=== PATIENT | female | born 1980 | race Caucasian/White ===

== ENCOUNTER 2016-09-21 22:26 | Emergency (ER) | payer BC ==
[~2016-09-21] VITALS: Ht 167.6 cm; Wt 78.5 kg
[2016-09-21 22:30] VITALS: Ht 167.6 cm; Wt 78.5 kg
--- NOTE | 2016-09-21 23:09 | ERA ---
ER Documentation Chief Complaint Date/Time DATE: 09/21/16 TIME: 23:09 Chief Complaint left chest pain radaiting to back since last night, hx- LVH HPI The patient is a 35-year-old female, presenting to the ER because of epigastric abdominal pain radiating to the sternal area and to the back for 1 day. She has similar symptoms about 6 months ago where she saw a winder contort operator. She had a Janice scan test about a month ago that show left ventricular hypertrophy. Her winder contort operator put her on Cardizem and losartan. She is worried that she may not live a long life, she is very emotional, crying during the interview. She denies any fever, chills, neck pain, chest pain with exertion or vomiting or palpitation. He denies nausea, vomiting, dysuria, diarrhea. She does not smoke , drink Past medical history: Hypertension Past surgical history: Hemorrhoidectomy ROS All systems reviewed and are negative except as per history of present illness. Medications Home Meds Active Scripts Sulfamethoxazole/Trimethoprim* (Bactrim Ds* Tablet) 1 Each Tablet, 1 TAB PO BID , #14 TAB Prov:EZEKIEL ANTONIO MD 09/22/16 Reported Medications Alprazolam* (Xanax*) 0.25 Mg Tablet, PO Q8H Y for ANXIETY, TAB 09/22/16 Aspirin* (Aspirin* EC) 81 Mg Tablet.dr, 81 MG PO DAILY, TAB 09/22/16 [place]-3 Fatty Acids (Fish Oil) 300 Mg Capsule, 300 MG PO, CAP 09/22/16 Clonidine Hcl* (Clonidine Hcl*) 0.1 Mg Tab, 0.1 MG PO Q6, TAB 09/22/16 Losartan Potassium* (Losartan Potassium*) 50 Mg Tablet, 50 MG PO DAILY, TAB 09/22/16 Diltiazem Hcl* (Cartia XT*) 120 Mg Cap.sr.24h, 120 MG PO DAILY, #30 CAP 09/22/16 Allergies Allergies: Coded Allergies: No Known Allergy (Unverified , 09/21/16) Physical Exam Vitals Vital Signs Date Time Temp Pulse Resp B/P Pulse Ox O2 Delivery O2 Flow Rate FiO2 09/21/16 23:34 Nasal Cannula 3 09/21/16 22:30 97.2 74 20 136/78 99 Physical Exam Const: No acute distress. Head: Atraumatic. Eyes: Normal Conjunctiva. ENT: Normal External Ears, Nose and Mouth. Neck: Full range of motion. No meningismus. Resp: Clear to auscultation bilaterally. Cardio: Regular rate and rhythm. Abd: Soft, non distended, normal bowel sounds, non tender. Skin: No petechiae or rashes. Back: No midline or flank tenderness. Ext: No cyanosis, or edema. Neur: Awake and alert. No focal deficit Psych: Normal Mood and Affect. Result Diagram: 09/21/16 2309 09/21/16 230 Results 24 hrs Laboratory Tests Test 09/21/16 23:00 09/21/16 23:09 09/22/16 01:55 Urine Color LT. YELLOW Urine Clarity SLIGHTLY CLOUDY Urine pH 6.5 Urine Specific [place] <=1.005 Urine Ketones NEGATIVE Urine Nitrite NEGATIVE Urine Bilirubin NEGATIVE Urine Urobilinogen 0.2 E.U./dL Urine Leukocyte Esterase 1+ Urine Microscopic RBC >200/HPF Urine Microscopic WBC 2-5/HPF Urine Squamous Epithelial Cells FEW Urine Bacteria MODERATE Urine Hemoglobin 3+ Urine Glucose NEGATIVE% Urine Total Protein 1+ White Blood Count 8.610^3/ul Red Blood Count 4.8710^6/ul Hemoglobin 12.8g/dl Hematocrit 39.1% Mean Corpuscular Volume 80.3fl Mean Corpuscular Hemoglobin 26.3pg Mean Corpuscular Hemoglobin Concent 32.7g/dl Red Cell Distribution Width 14.3% Platelet Count 91822^3/UL Mean Platelet Volume 12.9fl Neutrophils % 51.3% Lymphocytes % 42.2% Monocytes % 5.0% Eosinophils % 1.2% Basophils % 0.1% Nucleated Red Blood Cells % 0.0/100WBC Neutrophils # 4.410^3/ul Lymphocytes # 3.610^3/ul Monocytes # 0.410^3/ul Eosinophils # 0.110^3/ul Basophils # 0.010^3/ul Nucleated Red Blood Cells # 0.010^3/ul Prothrombin Time 13.6Sec Prothrombin Time Ratio 1.1 INR International Normalized Ratio 1.04 Activated Partial Thromboplast Time 26.2Sec Sodium Level 140mmol/L Potassium Level 3.8mmol/L Chloride Level 106mmol/L Carbon Dioxide Level 21mmol/L Anion Gap 17 Blood Urea Nitrogen 7mg/dl Creatinine 0.62mg/dl Glucose Level 132mg/dl Calcium Level 9.1mg/dl Total Bilirubin 0.2mg/dl Direct Bilirubin 0.00mg/dl Indirect Bilirubin 0.2mg/dl Aspartate Amino Transf (AST/SGOT) 19IU/L Alanine Aminotransferase (ALT/SGPT) 33IU/L Alkaline Phosphatase 52IU/L Troponin I < 0.012ng/ml < 0.012ng/ml Total Protein 7.4g/dl Albumin 4.6g/dl Globulin 2.80g/dl Albumin/Globulin Ratio 1.64 Lipase 87U/L Current Medications Medications (Trade) Dose Ordered Sig/Martha Route PRN Reason Start Time Stop Time Status Last Admin Dose Admin Lorazepam (Ativan) 0.5 mg ONCE ONCE PO 09/21/16 23:30 09/21/16 23:31 DC 09/21/16 23:28 Ketorolac Tromethamine (Toradol) 30 mg ONCE STAT IV 09/22/16 01:29 09/22/16 01:30 DC 09/22/16 01:41 Procedures/[place] [id number] Radiology Main Line: [phone] DIAGNOSTIC IMAGING REPORT Patient: CECI VALENTINO : 1980 Age: 35 Sex: F MR #: [id number] DOS: 09/21/16 2320 Ordering MD: EZEKIEL ANTONIO MD Location: E/R Room/Bed: PROCEDURE: XR Chest. CLINICAL INDICATION: Chest pain. TECHNIQUE: Single frontal view of the chest. COMPARISON: None. FINDINGS: The cardiomediastinal silhouette is within normal limits. The lungs are clear. No signs of pleural fluid or pneumothorax are seen. The osseous structures and soft tissues are unremarkable. IMPRESSION: No evidence for active cardiopulmonary disease. RPTAT: [facility] Physician Norma Date Time Electronically viewed and signed by Physician Norma on 09/22/2016 00:31 RS/ CC: EZEKIEL ANTONIO MD EKG: At 2311 hrs. read by emergency physician Rate/Rhythm: Normal Sinus Rhythm 78 beats/min QRS, ST, T-waves: No ST elevation, no T inversion, sinus arrhythmia Impression: Abnormal EKG EKG: Read by emergency physician Rate/Rhythm: Normal Sinus Rhythm 60 beats/min QRS, ST, T-waves: No ST elevation, no T inversion Impression: EKG MEDICAL MAKING DECISION: The patient is a 35-year-old female, presenting with acute chest pain most likely due to acute stress and acute anxiety, acute cystitis. She was treated with Ativan 0.5 mg p.o. for acute anxiety and Toradol 30 mg IV for chest wall pain with good response The differential diagnoses considered include but are not limited to acute coronary syndrome, acute myocardial infarction, pericarditis, pulmonary embolism , aortic dissection, pneumonia, pleural effusion, pneumothorax, GERD, chest wall pain. Departure Diagnosis: Primary Impression: Chest pain Additional Impression: UTI (urinary tract infection) Condition: Good Comments She was discharged with Bactrim DS and Motrin The patient presents with chest pain and I considered pulmonary embolism, aortic dissection, pneumothorax among other diagnoses. Evaluation for acute coronary syndrome was performed. The HEART score (www.mdcalc.com) was utilized for risk stratification and found to be <= 3. Repeat EKG and troponin @ 3 hours were unchanged. Based on this evaluation the patients risk of major adverse cardiac events is <1%. Shared decision making occurred with patient and the decision has been made to discharge the patient for outpatient evaluation and functional study within 72 hours. EZEKIEL ANTONIO MD Sep 21, 2016 23:09
[2016-09-21] MEDS ORDERED: LORAZEPAM 0.5 MG TAB PO ONE (23:30)
[2016-09-21 23:33] LABS: ADD SCAN DIFF NO
[2016-09-21 23:34] LABS: BASOPHILS % 0.1 % (0.0-2.0); EOSINOPHILS # 0.1 10^3/ul (0.0-0.5); EOSINOPHILS % 1.2 % (0.0-7.0); HEMATOCRIT 39.1 % (37.0-47.0); HEMOGLOBIN 12.8 g/dl (12.0-16.0); LYMPHOCYTES # 3.6 10^3/ul (0.8-2.9); LYMPHOCYTES % 42.2 % (15.0-51.0); MEAN CORPUSCULAR HEMOGLOBIN 26.3 pg (29.0-33.0); MEAN CORPUSCULAR HGB CONC 32.7 g/dl (32.0-37.0); MEAN CORPUSCULAR VOLUME 80.3 fl (82.0-101.0); MEAN PLATELET VOLUME 12.9 fl (7.4-10.4); MONOCYTE # 0.4 10^3/ul (0.3-0.9); NEUTROPHIL # 4.4 10^3/ul (1.6-7.5); NEUTROPHILS % 51.3 % (39.0-77.0); PLATELET COUNT 326 10^3/UL (140-415); RED BLOOD COUNT 4.87 10^6/ul (4.20-5.40); RED CELL DISTRIBUTION WIDTH 14.3 % (11.5-14.5); WHITE BLOOD COUNT 8.6 10^3/ul (4.8-10.8)
[2016-09-21 23:44] LABS: ALBUMIN 4.6 g/dl (3.3-4.9); ALBUMIN/GLOBULIN RATIO 1.64; BILIRUBIN,INDIRECT 0.2 mg/dl (0-1.1); BILIRUBIN,TOTAL 0.2 mg/dl (0.2-1.3); CALCIUM 9.1 mg/dl (8.4-10.2); CREATININE 0.62 mg/dl (0.44-1.00); POTASSIUM 3.8 mmol/L (3.5-5.1); TOTAL PROTEIN 7.4 g/dl (6.1-8.1)
[2016-09-21 23:50] LABS: INR 1.04; PROTIME 13.6 Sec (12.2-14.2); PT RATIO 1.1
[2016-09-21 23:51] LABS: PARTIAL THROMBOPLASTIN TIME 26.2 Sec (25.0-35.0)
[2016-09-22 00:17] LABS: ADD UMIC YES; URINE BILIRUBIN (Dip) NEGATIVE (NEGATIVE); URINE BLOOD (Dip) 3+ (NEGATIVE); URINE COLOR LT. YELLOW (YELLOW); URINE GLUCOSE (Dip) NEGATIVE (NEGATIVE); URINE KETONES (Dip) NEGATIVE (NEGATIVE); URINE LEUKOCYTE ESTERASE (Dip) 1+ (NEGATIVE); URINE NITRITE (Dip) NEGATIVE (NEGATIVE); URINE TOTAL PROTEIN (Dip) 1+ (NEGATIVE); URINE UROBILINOGEN (Dip) 0.2 E.U./dL (0.1-1.0)
--- NOTE | 2016-09-22 00:31 | RADRPT ---
PROCEDURE: XR Chest. CLINICAL INDICATION: Chest pain. TECHNIQUE: Single frontal view of the chest. COMPARISON: None. FINDINGS: The cardiomediastinal silhouette is within normal limits. The lungs are clear. No signs of pleural f luid or pneumothorax are seen. The osseous structures and soft tissues are unremarkable. IMPRESSION: No evidence for active cardiopulmonary disease. RPTAT: [facility] Physician Norma Date Time Electronically viewed and signed by Physician Norma on 09/22/2016 00:31 RS/
[2016-09-22 00:33] LABS: BACTERIA,URINE MODERATE; SQUAMOUS EPITHELIAL CELL,UR FEW; URINE RBCS >200 /HPF (0)
[2016-09-22] MEDS ORDERED: KETOROLAC 30 MG INJ IV STA (01:29)
[2016-09-22] MEDS ORDERED: LOSA50TA6 PO (02:00)
[2016-09-22] MEDS ORDERED: CLON-379 PO (02:00)
[2016-09-22] MEDS ORDERED: DILT120C62 PO (02:00)
[2016-09-22] MEDS ORDERED: ASPI-664 PO (02:02)
[2016-09-22] MEDS ORDERED: OMEG300C3 PO (02:02)
[2016-09-22] MEDS ORDERED: ALPR0.25 PO (02:02)
[2016-09-22] MEDS ORDERED: SULF1TAB31 PO (03:33)
[2016-09-22 04:00] VITALS: BP 120/75; PULSE 65; RESP 16; TEMP 98.1
== END 2016-09-22 04:02 | disposition home or self-care (01) ==
LOC: E/R 22:26
DX: R07.9 Chest pain, unspecified (principal); N39.0 Urinary tract infection, site not specified; Z79.82 Long term (current) use of aspirin
CPT/HCPCS: 36415; 71010; 80053; 81001; 83690; 84484; 85025; 85610; 85730; 96374; J1885; Z7502; Z7610

== ENCOUNTER 2017-01-10 03:05 | Inpatient (IN) | payer BC ==
[~2017-01-10] VITALS: Ht 162.6 cm; Wt 71.0 kg
[2017-01-10] VITALS (9 sets, daily range): BP systolic 95–102; BP diastolic 54–64; PULSE 63–79; RESP 19–20; TEMP 97.8; Ht 162.6 cm; Wt 71.0 kg
[~2017-01-10 03:05] MED LIST: ALPR0.25 PO; ASPI-664 PO; CLON-379 PO; DILT120C62 PO; LOSA50TA6 PO; OMEG300C3 PO; SULF1TAB31 PO
[2017-01-10] MEDS ORDERED: KETOROLAC 15 MG INJ IV STA (03:09)
[2017-01-10] MEDS ORDERED: ONDANSETRON 4 MG INJ IV STA (03:09)
[2017-01-10] MEDS ORDERED: LIDOCAINE/MYLANTA 40 ML BTL PO STA (03:09)
[2017-01-10] MEDS ORDERED: SOD CHLORIDE 0.9% 1,000 ML IV STA (03:09)
[2017-01-10] MEDS ORDERED: BELLADONNA/PHENOBARBITAL TAB PO STA (03:09)
[2017-01-10] MEDS ORDERED: ALPRAZOLAM 1 MG TAB PO ONE (03:30)
[2017-01-10 03:34] LABS: BASOPHILS % 0.5 % (0.0-2.0); EOSINOPHILS # 0.1 10^3/ul (0.0-0.5); EOSINOPHILS % 1.7 % (0.0-7.0); HEMATOCRIT 34.4 % (37.0-47.0); HEMOGLOBIN 11.3 g/dl (12.0-16.0); LYMPHOCYTES # 3.8 10^3/ul (0.8-2.9); LYMPHOCYTES % 46.7 % (15.0-51.0); MEAN CORPUSCULAR HEMOGLOBIN 25.6 pg (29.0-33.0); MEAN CORPUSCULAR HGB CONC 32.8 g/dl (32.0-37.0); MEAN PLATELET VOLUME 11.8 fl (7.4-10.4); MONOCYTE # 0.5 10^3/ul (0.3-0.9); MONOCYTES % 5.8 % (0.0-11.0); NEUTROPHIL # 3.7 10^3/ul (1.6-7.5); NEUTROPHILS % 45.1 % (39.0-77.0); PLATELET COUNT 286 10^3/UL (140-415); RED BLOOD COUNT 4.41 10^6/ul (4.20-5.40); RED CELL DISTRIBUTION WIDTH 15.5 % (11.5-14.5); WHITE BLOOD COUNT 8.1 10^3/ul (4.8-10.8)
--- NOTE | 2017-01-10 03:37 | RADRPT ---
PROCEDURE: CHEST - 1 VIEW CLINICAL INDICATION: 36-year-old female with chest/abdominal pain. TECHNIQUE: A single frontal AP upright portable view of the chest was performed. The images were reviewed on a PACS workstation. COMPARISON: None. FINDINGS: The cardiomediastinal silhouette has a normal appearance. There is no evidence for an infiltrate. There is no evidence for congestive heart failure. There is no evidence for pneumothorax. The osseou s structures are intact. IMPRESSION: No evidence for active cardiopulmonary disease. .Quinton Chandler MD, MD Date Time Electronically viewed and signed by .Quinton Chandler MD, on 01/10/2017 03:37 .M/
[2017-01-10 03:53] LABS: ALANINE AMINOTRANSFERASE 33 IU/L (13-69); ALBUMIN/GLOBULIN RATIO 1.29; ALKALINE PHOSPHATASE 61 IU/L (42-121); ANION GAP 13 (8-16); ASPARTATE AMINO TRANSFERASE 15 IU/L (15-46); BILIRUBIN,INDIRECT 0.3 mg/dl (0-1.1); BILIRUBIN,TOTAL 0.3 mg/dl (0.2-1.3); BLOOD UREA NITROGEN 6 mg/dl (7-20); CALCIUM 8.7 mg/dl (8.4-10.2); CARBON DIOXIDE 20 mmol/L (21-31); CHLORIDE 110 mmol/L (97-110); CREATININE 0.57 mg/dl (0.44-1.00); GLUCOSE 109 mg/dl (70-220); POTASSIUM 3.5 mmol/L (3.5-5.1); SODIUM 139 mmol/L (135-144); TOTAL PROTEIN 7.1 g/dl (6.1-8.1)
[2017-01-10 04:12] LABS: TROPONIN-I < 0.012 ng/ml (0.00-0.12)
--- NOTE | 2017-01-10 04:25 | ERA ---
ER Documentation Chief Complaint Date/Time DATE: 01/10/17 TIME: 04:17 Chief Complaint bib ra cp x30min. +nitrox2, 162 aspirin given. hx LVH HPI 36-year-old woman with a history of left ventricular hypertrophy and early coronary artery disease stents with pressure like substernal chest pain lasting 20-30 minutes. She states the discomfort is worse than her normal chest pains which are usually was leave the with 1 dose of nitroglycerin. She states she used all 3 doses of nitroglycerin this evening without relief of her chest pain , and also states her pulse went up and her blood pressure was elevated. She states she is magnesium citrate yesterday to treat constipation but had multiple episodes of diarrhea last night and today. She denies blood per rectum or melena. She denies history of AL, no shortness of breath, no fevers or chills, no vomiting, no abdominal pain, no headache or blurry vision, no loss of consciousness. Patient was transported here by EMS without further complications. ROS All systems reviewed and are negative except as per history of present illness. Medications Home Meds Active Scripts Sulfamethoxazole/Trimethoprim* (Bactrim Ds* Tablet) 1 Each Tablet, 1 TAB PO BID , #14 TAB Prov:EZEKIEL ANTONIO MD 09/22/16 Reported Medications Alprazolam* (Xanax*) 0.25 Mg Tablet, PO Q8H Y for ANXIETY, TAB 09/22/16 Aspirin* (Aspirin* EC) 81 Mg Tablet.dr, 81 MG PO DAILY, TAB 09/22/16 [place]-3 Fatty Acids (Fish Oil) 300 Mg Capsule, 300 MG PO, CAP 09/22/16 Clonidine Hcl* (Clonidine Hcl*) 0.1 Mg Tab, 0.1 MG PO Q6, TAB 09/22/16 Losartan Potassium* (Losartan Potassium*) 50 Mg Tablet, 50 MG PO DAILY, TAB 09/22/16 Diltiazem Hcl* (Cartia XT*) 120 Mg Cap.sr.24h, 120 MG PO DAILY, #30 CAP 09/22/16 Allergies Allergies: Coded Allergies: No Known Allergy (Unverified , 09/21/16) PMhx/Soc Hypertension, left ventricular hypertrophy History of Surgery: Yes (Hemorrhoidectomy,R Eyelid Surg,Rhinoplasty) Anesthesia Reaction: No Hx Neurological Disorder: No Hx Respiratory Disorders: No Hx Cardiac Disorders: Yes (HTN) Hx Psychiatric Problems: Yes (Anxiety) Hx Miscellaneous Medical Probl: No Hx Alcohol Use: No Hx Substance Use: No Hx Tobacco Use: Yes Smoking Status: Former smoker FmHx History of early CAD in father with his first CABG at 50-55 years of age Family History: No diabetes Physical Exam Vitals Vital Signs Date Time Temp Pulse Resp B/P Pulse Ox O2 Delivery O2 Flow Rate FiO2 01/10/17 03:14 98.7 91 20 109/80 99 Physical Exam GENERAL: Well-developed, well-nourished, anxious, tearful, afebrile HEENT: Moist mucous membranes, pink conjunctiva, no cervical spine tenderness or step-off deformities, no goiter, no jaundice or icterus, extraocular movements intact without pain. No submandibular induration, and no pharyngeal erythema NEURO: Alert and oriented 3, cranial nerves II through XII intact bilaterally, pupils equal round reactive to light, no focal deficits or facial asymmetry, sensation intact distally Strength 5/5 in upper and lower extremities bilaterally CARDIAC: Regular rate and rhythm, no murmurs rubs or gallops LUNGS: Clear bilaterally no wheezing crackles or stridor ABDOMEN: Soft nontender, no guarding, no rigidity, no rebound, no psoas sign no obturator sign. Normoactive bowel sounds SKIN: Warm and dry to touch, no abrasions, contusions, or hematomas, no lacerations, no ecchymosis, no target lesions, and without ulcers EXTREMITIES: No clubbing cyanosis or edema, calves are bilaterally symmetrical, no Homans sign, no popliteal cord sign. Distal pulses equal and bilateral PSYCH: Anxious Result Diagram: 01/10/17 0322 01/10/17 0322 Results 24 hrs Laboratory Tests Test 01/10/17 03:22 White Blood Count 8.110^3/ul Red Blood Count 4.4110^6/ul Hemoglobin 11.3g/dl Hematocrit 34.4% Mean Corpuscular Volume 78.0fl Mean Corpuscular Hemoglobin 25.6pg Mean Corpuscular Hemoglobin Concent 32.8g/dl Red Cell Distribution Width 15.5% Platelet Count 20481^3/UL Mean Platelet Volume 11.8fl Neutrophils % 45.1% Lymphocytes % 46.7% Monocytes % 5.8% Eosinophils % 1.7% Basophils % 0.5% Nucleated Red Blood Cells % 0.0/100WBC Neutrophils # 3.710^3/ul Lymphocytes # 3.810^3/ul Monocytes # 0.510^3/ul Eosinophils # 0.110^3/ul Basophils # 0.010^3/ul Nucleated Red Blood Cells # 0.010^3/ul Sodium Level 139mmol/L Potassium Level 3.5mmol/L Chloride Level 110mmol/L Carbon Dioxide Level 20mmol/L Anion Gap 13 Blood Urea Nitrogen 6mg/dl Creatinine 0.57mg/dl Glucose Level 109mg/dl Calcium Level 8.7mg/dl Total Bilirubin 0.3mg/dl Direct Bilirubin 0.00mg/dl Indirect Bilirubin 0.3mg/dl Aspartate Amino Transf (AST/SGOT) 15IU/L Alanine Aminotransferase (ALT/SGPT) 33IU/L Alkaline Phosphatase 61IU/L Troponin I < 0.012ng/ml Total Protein 7.1g/dl Albumin 4.0g/dl Globulin 3.10g/dl Albumin/Globulin Ratio 1.29 Lipase 90U/L Current Medications Medications (Trade) Dose Ordered Sig/Martha Route PRN Reason Start Time Stop Time Status Last Admin Dose Admin Sodium Chloride (NS) 1,000 ml @ 1,000 mls/hr Q1H STAT IV 01/10/17 03:09 01/10/17 04:08 DC 01/10/17 03:22 Ondansetron HCl (Zofran Inj) 4 mg ONCE STAT IV 01/10/17 03:09 01/10/17 03:12 DC 01/10/17 03:21 Miscellaneous Medication (Gi Cocktail (2)) 40 ml ONCE STAT PO 01/10/17 03:09 01/10/17 03:12 DC 01/10/17 03:22 Belladonna/ Phenobarbital () 2 tab ONCE STAT PO 01/10/17 03:09 01/10/17 03:12 DC 01/10/17 03:21 Ketorolac Tromethamine (Toradol) 15 mg ONCE STAT IV 01/10/17 03:09 01/10/17 03:12 DC 01/10/17 03:27 Alprazolam (Xanax) 1 mg ONCE ONCE PO 01/10/17 03:30 01/10/17 03:31 DC 01/10/17 03:21 Procedures/MDM The line was established patient was placed on talk show host rhythm strip revealed a sinus rhythm at about 70 bpm with upright P and T waves. Patient was afebrile. EKG performed, read by me: 79 bpm, normal sinus rhythm, normal axis, no acute ST segment changes, narrow QRS complex, with good R-wave progression in precordial leads. One AP view of the chest performed, read by me reveals no acute infiltrates, normal mediastinum, sharp costophrenic and cardiac borders, no air under the diaphragm. Otherwise unremarkable chest x-ray. I administered 1 L normal saline intravenously, Toradol 15 mg IV, Zofran 4 mg IV , GI cocktail 30 cc p.o. and alprazolam 1 mg p.o. Patient used aspirin prior to arrival and EMS also administered aspirin in route. CBC and electrolytes are normal, liver function tests are normal, troponin was negative. Patient has concerning past medical history and a strong family history of early cardiac disease and experienced concerning chest pain today which was not relieved by her usual dose of nitroglycerin. She will be admitted to telemetry setting for continued medical management cardiology consultation. Departure Diagnosis: Primary Impression: Chest pain Qualified Code: R07.9 - Chest pain, unspecified type Additional Impressions: Unstable angina Hypertension Qualified Code: I10 - Essential hypertension Condition: CLAUDIA Kirby MD Jan 10, 2017 04:25
[2017-01-10] MEDS ORDERED: LACT1TAB25 PO (04:51)
[2017-01-10] MEDS ORDERED: NIT4 SL (04:51)
[2017-01-10] MEDS ORDERED: ONDANSETRON 4 MG INJ IV PRN (06:00)
[2017-01-10] MEDS ORDERED: morphine 2 MG INJ IV PRN (06:00)
[2017-01-10] MEDS ORDERED: NITROGLYCERIN (SL) 0.4 MG TAB SL PRN (06:00)
[2017-01-10] MEDS ORDERED: ALBUTEROL/IPRATROPIUM (NEB) 3 ML AMP HHN PRN (06:00)
[2017-01-10] MEDS ORDERED: ACETAMINOPHEN 325 MG TAB PO PRN (06:00)
[2017-01-10] MEDS ORDERED: NACL 0.9% 3 ML SYG IV SCH (06:00)
[2017-01-10] MEDS ORDERED: ALPRAZOLAM 0.25 MG TAB PO PRN (06:00)
[2017-01-10 07:39] LABS: CREATINE KINASE 31 IU/L (23-200)
[2017-01-10 07:51] LABS: CK-MB < 0.22 ng/ml (0.0-2.4)
[2017-01-10 08:04] LABS: TROPONIN-I < 0.012 ng/ml (0.00-0.12)
[2017-01-10] MEDS ORDERED: ASPIRIN 81 MG TAB PO SCH (09:00)
[2017-01-10] MEDS ORDERED: FAMOTIDINE 20 MG TAB PO SCH (09:00)
[2017-01-10] MEDS ORDERED: LOSARTAN 50 MG TAB PO SCH (09:00)
[2017-01-10] MEDS ORDERED: DILTIAZEM (CD) 180 MG CAP PO SCH (09:00)
[2017-01-10] MEDS ORDERED: ENOXAPARIN 40 MG/0.4 ML SYG SC SCH (09:00)
--- NOTE | 2017-01-10 09:53 | HP ---
Date/Time of Note Date/Time of Note DATE: 01/10/17 TIME: 09:45 Assessment/Plan VTE Prophylaxis VTE Prophylaxis Intervention: heparin Lines/Catheters IV [facility]ter [facility]from [facility] [place] [facility] Urinary Cath still in place: No Assessment/Plan Assessment/Plan 1. Chest pain, rule out ACS -Continue telemetry monitoring -Trend troponin -Supplemental oxygen, aspirin, with as needed nitro morphine -Check A1c, fasting lipid and TSH -Follow-up 2D echo results -Cardiology consult as needed 2. History of hypertension: Blood pressure within goal -Continue antihypertensives with adjustment as needed 3. History of anxiety disorder -Continue Xanax as needed HPI/ROS Admit Date/Time Admit Date/Time Jan 10, 2017 at 05:00 Hx of Present Illness This is a 36-year-old female with a history of hypertension, anxiety, probable unstable angina who presented to the emergency department complaining of chest pain. Pain is substernal, pressure-like, with radiation down into the epigastric area. She said for a long time, she has been having chest pain sometimes on a daily basis for which she has been taking sublingual nitroglycerin. She said the nitro sometimes helps and other times he does not. This time she took 3 of them without any relief. She said she was told she has LVH, from her hypertension and seems to be concerned about that. She follows up with his weather observer and actually not long ago had stress test. She said does not fully know the results of but thinks that it was not negative. She never had cardiac cath. Patient also reported history of anxiety for which she has been taking Xanax PMH/Family/Social Social History Smoking Status: Never smoker Exam/Review of Systems Vital Signs Vitals Vital Signs Date Time Temp Pulse Resp B/P Pulse Ox O2 Delivery O2 Flow Rate FiO2 01/10/17 08:10 63 01/10/17 08:09 98.0 20 100/64 97 01/10/17 05:15 Room Air Intake and Output 01/09/17 01/09/17 01/10/17 15:00 23:00 07:00 Intake Total 1000 ml Balance 1000 ml Exam Constitutional: other (No acute distress. Patient was sitting up on the bed and appears anxious especially as I walked into the room.) Head: atraumatic, normocephalic Eyes: EOMI, PERRL Respiratory: clear to auscultation, normal air movement Cardiovascular: nl pulses, regular rate and rhythm Gastrointestinal: non-tender, soft Extremities: normal pulses Labs Result Diagram: 01/10/172 01/10/17 032 Medications Medications Current Medications Ondansetron HCl (Zofran Inj) 4 mg Q6H PRN IV NAUSEA AND/OR VOMITING; Start at 06:00 Aspirin (Aspirin) 81 mg DAILY PO Last administered on 01/10/17 09:28; Admin Dose 81 MG; Start 01/10/17 at 09:00 Nitroglycerin (Nitroglycerin (Sl Tab) 0.4 Mg) 1 tab Q5M PRN SL CHEST PAIN; Start 01/10/17 at 06:00 Acetaminophen (Tylenol Tab) 650 mg Q6H PRN PO PAIN LEVEL 1-3 OR FEVER; Start at 06:00 Morphine Sulfate (morphine) 2 mg Q4H PRN IV PAIN LEVEL 7-10; Start 01/10/17 at 06:00 Famotidine (Pepcid) 20 mg Q12 PO Last administered on 01/10/17 09:28; Admin Dose 20 MG; Start 01/10/17 at 09:00 Enoxaparin Sodium (Lovenox) 40 mg DAILY SC Last administered on 01/10/17 09:29 ; Admin Dose 40 MG; Start 01/10/17 at 09:00 Alprazolam (Xanax) 0.5 mg Q8H PRN PO ANXIETY; Start 01/10/17 at 06:00 Diltiazem HCl (Cardizem Cd) 180 mg DAILY PO ; Start 01/10/17 at 09:00 Losartan Potassium (Cozaar) 50 mg DAILY PO ; Start 01/10/17 at 09:00 SAMMY MILLER MD Jan 10, 2017 09:53
[2017-01-10 13:12] LABS: CREATINE KINASE 37 IU/L (23-200)
[2017-01-10 13:28] LABS: CK-MB < 0.22 ng/ml (0.0-2.4); TROPONIN-I < 0.012 ng/ml (0.00-0.12)
[2017-01-10] MEDS ORDERED: PANT40TA3 PO (14:46)
--- NOTE | 2017-01-10 14:53 | DS ---
Date/Time of Note Date/Time of Note DATE: 01/10/17 TIME: 14:47 Discharge Summary Admission/Discharge Info Admit Date/Time Jan 10, 2017 at 05:00 Discharge Date/Time Discharge Diagnosis 1. Chest pain, consider GI related, protonix follow up with PCP 2. HTN, controlled 3. Anxiety disorder, stable, follow up with PCP Patient Condition: Stable Hospital Course 36 years old female with HTN and anxiety disorder has lower retrosternal and epigastric pain for years that she had stress thallium test 2 years ago and then 4 months ago both were negative. Patient came in with similar chest pain, constant, not relieved by NTG for several hours. It is subsided today. Physical exam with epigastric and lower sternum tenderness. Troponin is negative, ECG unremarkable. Chest pain is considered noncardiac, no further cardiac workup needed at this time. Home Meds Active Scripts Pantoprazole* (Protonix*) 40 Mg Tablet.dr, 40 MG PO DAILY for 30 Days, TAB Prov:OMAR SARMIENTO MD 01/10/17 Reported Medications Lactobacillus Acidophilus (Probiotic Acidophilus) 1 Each Tablet, 1 EACH PO, TAB 01/10/17 Nitroglycerin* (Nitrostat*) 0.4 Mg Tab.subl, 0.4 MG SL Q5MIN Y for CHEST PAIN, BOTTLE 01/10/17 Alprazolam* (Xanax*) 0.25 Mg Tablet, PO Q8H Y for ANXIETY, TAB 09/22/16 [place]-3 Fatty Acids (Fish Oil) 300 Mg Capsule, 300 MG PO, CAP 09/22/16 Losartan Potassium* (Losartan Potassium*) 50 Mg Tablet, 50 MG PO DAILY, TAB 09/22/16 Diltiazem Hcl* (Cartia XT*) 120 Mg Cap.sr.24h, 180 MG PO DAILY, #30 CAP 09/22/16 Discontinued Reported Medications Aspirin* (Aspirin* EC) 81 Mg Tablet.dr, 81 MG PO DAILY, TAB 09/22/16 Clonidine Hcl* (Clonidine Hcl*) 0.1 Mg Tab, 0.1 MG PO Q6, TAB 09/22/16 Discontinued Scripts Sulfamethoxazole/Trimethoprim* (Bactrim Ds* Tablet) 1 Each Tablet, 1 TAB PO BID , #14 TAB Prov:EZEKIEL ANTONIO MD 09/22/16 Follow-up Plan PCP and cardiology in one week Primary Care Provider Not On Staff Doctor Pending Labs Laboratory Tests Test 01/10/17 03:22 01/10/17 06:45 01/10/17 12:32 White Blood Count 8.110^3/ul (4.8-10.8) Red Blood Count 4.4110^6/ul (4.20-5.40) Hemoglobin 11.3g/dl (12.0-16.0) Hematocrit 34.4% (37.0-47.0) Mean Corpuscular Volume 78.0fl (82.0-101.0) Mean Corpuscular Hemoglobin 25.6pg (29.0-33.0) Mean Corpuscular Hemoglobin Concent 32.8g/dl (32.0-37.0) Red Cell Distribution Width 15.5% (11.5-14.5) Platelet Count 85944^3/UL (140-415) Mean Platelet Volume 11.8fl (7.4-10.4) Neutrophils % 45.1% (39.0-77.0) Lymphocytes % 46.7% (15.0-51.0) Monocytes % 5.8% (0.0-11.0) Eosinophils % 1.7% (0.0-7.0) Basophils % 0.5% (0.0-2.0) Nucleated Red Blood Cells % 0.0/100WBC (0.0-0.0) Neutrophils # 3.710^3/ul (1.6-7.5) Lymphocytes # 3.810^3/ul (0.8-2.9) Monocytes # 0.510^3/ul (0.3-0.9) Eosinophils # 0.110^3/ul (0.0-0.5) Basophils # 0.010^3/ul (0.0-0.1) Nucleated Red Blood Cells # 0.010^3/ul (0.0-0.0) Sodium Level 139mmol/L (135-144) Potassium Level 3.5mmol/L (3.5-5.1) Chloride Level 110mmol/L (97-110) Carbon Dioxide Level 20mmol/L (21-31) Anion Gap 13 (8-16) Blood Urea Nitrogen 6mg/dl (7-20) Creatinine 0.57mg/dl (0.44-1.00) Glucose Level 109mg/dl (70-220) Calcium Level 8.7mg/dl (8.4-10.2) Total Bilirubin 0.3mg/dl (0.2-1.3) Direct Bilirubin 0.00mg/dl (0.00-0.20) Indirect Bilirubin 0.3mg/dl (0-1.1) Aspartate Amino Transf (AST/SGOT) 15IU/L (15-46) Alanine Aminotransferase (ALT/SGPT) 33IU/L (13-69) Alkaline Phosphatase 61IU/L (42-121) Troponin I < 0.012ng/ml (0.00-0.12) < 0.012ng/ml (0.00-0.12) < 0.012ng/ml (0.00-0.12) Total Protein 7.1g/dl (6.1-8.1) Albumin 4.0g/dl (3.3-4.9) Globulin 3.10g/dl (1.3-3.2) Albumin/Globulin Ratio 1.29 Lipase 90U/L (23-300) Creatine Kinase 31IU/L (23-200) 37IU/L (23-200) Creatine Kinase Index 0.7 0.6 Creatinine Kinase MB (Mass) < 0.22ng/ml (0.0-2.4) < 0.22ng/ml (0.0-2.4) OMAR SARMIENTO MD Jan 10, 2017 14:52
--- NOTE | 2017-01-10 14:56 | RADRPT ---
Echocardiogram Report Patient Name: CECI VALENTINO Gender: Female Date: 1980 Study Date: 10-Jan-2017 Stator Tester: Bridget Rowland [facility] Location: 5558 Ref. Physician: SAMMY MILLER Quality: Technically Difficult Study Procedures: Transthoracic echocardiogram with complete 2D, M-Mode, and doppler examination. Indications: Chest Pain. 2D/M Mode Doppler Measurement Value Normal Ranges Measurement Value Normal Ranges LVIDd 2D 4.3 3.5 - 5.6 cm AV Peak Lucio 1.3 m/sec LVIDs 2D 2.4 2.1 - 4.1 cm AV Peak PG 7.2 mmHg LVPWd 2D 0.8 0.6 - 1.1 cm LVOT Peak Lucio 1.0 m/sec IVSd 2D 0.8 0.6 - 1.1 cm LVOT Peak PG 4.4 mmHg AoR Diam 2D 1.8 2.0 - 3.7 cm MV E Peak Lucio 0.8 m/sec EDV 2D 84.3 cm3 MV A Peak Lucio 0.6 m/sec ESV 2D 14.2 cm3 MV E/A 1.4 LA Dimen 2D 3.0 2.3 - 4.0 cm MV Decel Time 148 msec MV Decel [place] 6 MV E/A 1.4 TR Peak Lucio 2.7 m/sec TR Peak PG 28.7 mmHg RVSP 32.0 mmHg Findings Left Ventricle: Normal left ventricular systolic function. Normal left ventricular cavity size. Normal left ventricular wall thickness. Ejection fraction is visually estimated at 65 %. Right Ventricle: Normal right ventricular size. Normal right ventricular systolic function. Left Atrium: The left atrium is normal in size. Right Atrium: The right atrium is normal in size. Mitral Valve: Normal appearance and function of the mitral valve with trace physiologic regurgitation. Aortic Valve: Normal appearance of the aortic valve. No significant aortic stenosis or insufficiency. Tricuspid Valve: Normal appearance and function of the tricuspid valve with trace physiologic regurgitation. Estimated peak PA systolic pressure 32 mmHg. Pulmonic Valve: Normal pulmonic valve appearance. Pericardium: Normal pericardium with no significant pericardial effusion. Aorta: Normal aortic root. IVC: Normal size and normal respiratory collapse consistent with normal right atrial pressure. Conclusions 1.Normal left ventricular systolic function. Normal left ventricular cavity size. Normal left ventricular wall thickness. Ejection fraction is visually estimated at 65 %. 2.Normal right ventricular size. Normal right ventricular systolic function. 3.The left atrium is normal in size. 4.The right atrium is normal in size. 5.No significant valvular stenosis or regurgitation seen. 6.Normal pericardium with no significant pericardial effusion. Electronically Signed By: Braxton Gonzalez 10-Jan-2017 14:56:01 -0700 Patient Name: CECI VALENTINO Study Date: 10-Jan-2017 [id number]
== END 2017-01-10 18:35 | disposition home or self-care (01) | DRG 313 ==
LOC: E/R 03:05 → MS4 05:00
PROVIDERS: ADMIT Internal Medicine; ATTEND Internal Medicine
DX: R07.9 Chest pain, unspecified (principal); I10 Essential (primary) hypertension; F41.9 Anxiety disorder, unspecified
CPT/HCPCS: 36415; 71010; 80053; 82550; 82553; 83690; 84484; 85025; 93005; 93306; 96361; 96374; 96375; J1650; J1885; J2405; J7030

== ENCOUNTER 2017-04-03 01:58 | Emergency (ER) | END 2017-04-03 06:23 | disposition home or self-care (01) ==

== ENCOUNTER 2017-06-23 03:11 | Emergency (ER) | END 2017-06-23 11:14 | disposition left against medical advice (07) ==

== ENCOUNTER 2017-07-30 10:15 | Emergency (ER) | END 2017-07-30 13:05 | disposition home or self-care (01) ==

== ENCOUNTER 2017-08-13 00:27 | Emergency (ER) | END 2017-08-13 03:35 | disposition home or self-care (01) ==

== ENCOUNTER 2017-08-20 11:27 | Inpatient (IN) | END 2017-08-22 16:40 | disposition home or self-care (01) | DRG 445 ==

== ENCOUNTER 2017-08-26 15:50 | Outpatient (CLI) | END 2017-08-26 16:01 | disposition home or self-care (01) ==

== ENCOUNTER 2018-07-16 10:04 | Day surgery (SDC) | payer BC ==
[~2018-07-16] VITALS: Ht 160 cm; Wt 65.8 kg
[~2018-07-16 10:04] MED LIST changes: -ASPI-664 PO; -CLON-379 PO; +EPHEDrine SULFATE 50 MG/5 ML SYG ONE; +FERR1TAB14 PO; +LACT1TAB25 PO; +LEVO500T48 PO; +LOSA50TA14 PO; -LOSA50TA6 PO; +NITR0.4T39 SL; +OMEG100016 PO; -OMEG300C3 PO; +PROPOFOL 200 MG INJ ONE; -SULF1TAB31 PO
[2018-07-16 10:48] VITALS: Ht 160 cm; Wt 65.8 kg
[2018-07-16] MEDS ORDERED: ASPI-903 PO (10:56)
[2018-07-16] MEDS ORDERED: LOSA50TA14 PO (10:56)
[2018-07-16] MEDS ORDERED: METO25TA4 PO (10:56)
[2018-07-16] MEDS ORDERED: ISOS30TA67 PO (10:56)
[2018-07-16 11:40] VITALS: BP 85/59; PULSE 60; RESP 19
[2018-07-16] MEDS ORDERED: MIDAZOLAM 1 MG/ML 2 ML INJ ONE (11:47)
[2018-07-16] MEDS ORDERED: PROPOFOL 20 ML ONE (11:47)
[2018-07-16] MEDS ORDERED: LIDOCAINE 2% (SDV) 5 ML INJ ONE (11:47)
--- NOTE | 2018-07-16 12:09 | PAC ---
Date/Time of Note Date/Time of Note DATE: 07/16/18 TIME: 12:08 Post-Anesthesia Notes Post-Anesthesia Note Last documented vital signs Vital Signs Date Temp Pulse Resp B/P (MAP) Pulse Ox O2 O2 Flow FiO2 Time Delivery Rate 07/16/18 98.0 60 19 85/59 (68) 99 Room Air 11:40 Activity: WNL Respiratory function: WNL Cardiovascular function: WNL Mental status: Baseline Pain reasonably controlled: Yes Hydration appropriate: Yes Nausea/Vomiting absent: Yes Comments BP: 108//66 HR: 81 RR: 15 T: 98 SaO2: 99% МАРИНА BARAHONA MD Jul 16, 2018 12:09
--- NOTE | 2018-07-16 12:15 | PREAC ---
Date/Time of Note Date/Time of Note Preanesthesia evaluation note written under different visit by mistake. Copied below Addendum: МАРИНА BARAHONA MD on 07/16/18 @ 11:41 Transthoracic echocardiogram August 2017 Conclusions Normal left ventricular systolic function. Normal left ventricular cavity size. Normal left ventricular wall thickness. Ejection fraction is visually estimated at 60 %. Tissue Doppler/Mitral Doppler indices are consistent with pseudonormalization with mildly elevated left atrial pressure (Stage II diastolic dysfunction). Mild mitral leaflet calcification. Mild mitral annular calcification. Trace mitral regurgitation. No significant aortic stenosis. Aortic cusps appear mildly calcified. Trace aortic valve regurgitation. Normal appearance of the tricuspid valve. Estimated peak PA systolic pressure 46 mmHg. There is mild tricuspid regurgitation. Normal pulmonic valve appearance. There is trace pulmonic regurgitation. <Electronically signed by МАРИНА BARAHONA MD> 07/16/18 1141 Addendum Dictated By: МАРИНА BARAHONA MD Addendum Electronically Signed By: Date/Time of Note Date/Time of Note DATE: 07/16/18 TIME: 11:38 Anesthesia Eval and Record Evaluation Time Pre-Procedure Interview DATE: 07/16/18 TIME: 11:38 Age 37 Sex female NPO: 8 hrs Preoperative diagnosis GERD Planned procedure EGD Past Medical History Past Medical History: Includes Cardio: HTN, Other (left ventricular hypertrophy, stage 2 diastolic dys function) Psych: Anxiety Surgery & Anesthesia Issues No known issue Meds Anticoagulation: No Beta Neal within 24 hr: Yes Reason Beta Neal not given: Bradycarida, Hypotension Reported Medications Metoprolol Tartrate* (Lopressor*) 25 Mg Tablet, 25 MG PO BID, #60 TAB 07/16/18 Losartan Potassium* (Losartan Potassium*) 50 Mg Tablet, 50 MG PO DAILY, TAB 07/16/18 Isosorbide Mononitrate* (Isosorbide Mononitrate*) 30 Mg Tab.er.24h, 30 MG PO DAILY, TAB 07/16/18 Aspirin* (Aspirin* Chew) 81 Mg Tab.chew, 81 MG PO DAILY, TAB.CHEW 07/16/18 Losartan Potassium* (Losartan Potassium*) 50 Mg Tablet, 50 MG PO DAILY, TAB 09/22/16 Discontinued Reported Medications [place]-3 Fatty Acids ([place]-3) 1,000 Mg Capsule, 1000 MG PO DAILY, CAP 08/20/17 Lactobacillus Acidophilus (Probiotic Acidophilus) 1 Each Tablet, 1 EACH PO DAILY, TAB 01/10/17 Nitroglycerin* (Nitrostat*) 0.4 Mg Tab.subl, 0.4 MG SL Q5MIN PRN for CHEST PAIN, BOTTLE 01/10/17 Alprazolam* (Xanax*) 0.25 Mg Tablet, PO Q8H PRN for ANXIETY, TAB 09/22/16 Diltiazem Hcl* (Cartia XT*) 120 Mg Cap.sr.24h, 180 MG PO DAILY, #30 CAP 09/22/16 Discontinued Scripts Ferrous Fumarate/Ascorbic Acid (Danisha-Sequels 65-25 mg Caplet) 1 Each Tablet.er, 1 EACH PO BID WITH MEALS, #60 TAB Prov:ABHI ZABALA KITCHEN MANAGER 08/22/17 Levofloxacin* (Levaquin*) 500 Mg Tablet, 500 MG PO DAILY for 7 Days, #7 TAB Prov:ABHI ZABALA KITCHEN MANAGER 08/22/17 Meds reviewed: Yes Allergies Coded Allergies: NSAIDS (Non-Steroidal Anti-Inflamma (Verified Allergy, Unknown, 08/20/17) REENTRY OF NSAID IN NON ALLERGY FIELD Allergies Reviewed: Yes Labs/Studies Labs Reviewed: Reviewed by anesthesiologist test: Negative Studies: 2D Echo Pre-procedure Exam Airway: Adequate mouth opening, Adequate thyromental dist Mallampati: Mallampati II Teeth: Normal Lung: Normal Heart: Normal ASA Physical Status ASA physical status: 3 Emergency: None Planned Anesthetic General/MAC: Mask Planned Pain Management Parenteral pain med Pre-operative Attestations Prior to commencing anesthesia and surgery, the patient was re-evaluated, there was verification of: *The patient's identity *The results of appropriate recent lab work and preoperative vital signs *The above evaluation not changing prior to induction *Anesthetic plan, risk benefits, alternative and complications discussed with p atient/family; questions answered; patient/family understands, accepts and wishes to proceed. МАРИНА BARAHONA MD Jul 16, 2018 11:40 <Electronically signed by МАРИНА BARAHONA MD> 07/16/18 1141 МАРИНА BARAHONA MD Jul 16, 2018 12:15
[2018-07-16 12:45] VITALS: BP 91/56; PULSE 73; RESP 18
== END 2018-07-16 13:28 | disposition home or self-care (01) ==
LOC: GIL 10:04
PROVIDERS: ATTEND Internal Medicine Gastroenterology
DX: K29.50 Unspecified chronic gastritis without bleeding (principal); K29.90 Gastroduodenitis, unspecified, without bleeding
CPT/HCPCS: 43239; 84703; 88305; 88312; J2250; Z7610

== ENCOUNTER 2018-08-26 06:01 | Inpatient (IN) | payer BC ==
--- NOTE | 2018-08-24 16:38 | PREOPHP ---
DATE OF ADMISSION: 08/26/2018 The patient is coming for surgery on 08/26/2018. HISTORY OF PRESENT ILLNESS: This is a 37-year-old female, 12, 11, 1 vaginal deliver y. The patient with fibroid uterus with history of large fibroids, constipation, pelvic pain, abnorm al bleeding and giant growth of the uterus that is giving her pelvic pressure with frequent urination and loss of urine sometimes with effort, frequent UTIs was referred for pelvic pain and back pain, f ibroid that has been growing in the last 6 months. This was done by her primary doctor. The patient also refers chest pain off and on with possible history of mitral valve prolapse, tricuspid insuffic iency, irregular heartbeat and gallstones ALLERGIES: THE PATIENT HAS NO ALLERGIES. MEDICATIONS: She takes: 1. Losartan. 2. Isosorbide. 3. Metoprolol. 4. Baby aspirin. PAST MEDICAL HISTORY: She had a history of gallstones, kidney stones. She has a history of hyperten apple, irregular heartbeat, palpitations. PAST SURGICAL HISTORY: The patient also had , fibroids, hemorrhoidectomy, rhinoplasty and william l valve prolapse along with tricuspid valve. She had no control since the has vasectom y. SOCIAL HISTORY: She does not drink or smoke. REVIEW OF SYSTEMS: She has no history of endocrine disease. No history of neurological disease, hem atological or other systems disease. FAMILY HISTORY: Hypertension, breast cancer, kidney stones, strokes and diabetes. PHYSICAL EXAMINATION: VITAL SIGNS: Stable. Her blood pressure is on the lower side 74/55, pulse is 80, she is afebrile an d 150 of weight and she is 5 feet and 4 inches. HEAD AND NECK: Normal. Thyroid is slightly enlarged. BREASTS: With severe fibrocystic disease with some lumps on the left side and diffuse severe fibrocy stic. For that reason, she is being worked up. HEART: Normal sinus rhythm. BACK: Normal. ABDOMEN: Soft. GENITOURINARY: The uterus is large, about 12 weeks' size of . Vaginal exam is normal with normal vagina, normal cervix and tender examination and bladder is normal. DIAGNOSES: 1. Large fibroid uterus enlarging. 2. Intractable pelvic and back pain. 3. Heart valve disease with irregular heartbeat. 4. Enlarged thyroid. 5. Severe fibrocystic breast disease. PLAN: She is undergoing a total abdominal hysterectomy and bilateral salpingectomy. She has been ad vised of the possible risks and possible complications of the procedure with her alternatives and opt ions. Written information was provided. She had no more questions and agreed to go ahead with the p rocedure with full understanding and no more questions. The ultrasound of the thyroid was normal and the patient was cleared by her seat nailer to go ahead with the surgery. Her Pap smear was also laura l. The diagnosis as I said is large fibroid uterus that has been enlarging, intractable pelvic and b ack pain, heart valve disease and fibrocystic breast. Preservation of the ovaries was advised unless they were involving any malignancy and will be removed at the time of the surgery. She was given ex tra information and written information about the procedure. All her questions were answered and we agree to go ahead with the procedure with full understanding and no more questions. Dictated By: ASTRID TINAJERO/KEITH Conf#: [id number] DID#: [id number]
[2018-08-26] VITALS (23 sets, daily range): BP systolic 92–126; BP diastolic 59–87; PULSE 54–86; RESP 12–24; Ht 160 cm; Wt 68.7 kg
[~2018-08-26] VITALS: Ht 160 cm; Wt 68.7 kg
[~2018-08-26 06:01] MED LIST changes: -ALPR0.25 PO; +ASPI-903 PO; -DILT120C62 PO; -EPHEDrine SULFATE 50 MG/5 ML SYG ONE; -FERR1TAB14 PO; +ISOS30TA67 PO; -LACT1TAB25 PO; -LEVO500T48 PO; +METO25TA4 PO; -NITR0.4T39 SL; -OMEG100016 PO; -PROPOFOL 200 MG INJ ONE
[2018-08-26] MEDS ORDERED: SEVOFLURANE 15 MIN ONE (07:00)
[2018-08-26] MEDS ORDERED: ROCURONIUM 50 MG INJ ONE ×2 (07:00→08:45)
[2018-08-26] MEDS ORDERED: CEFAZOLIN 1 GM INJ ONE (07:00)
[2018-08-26] MEDS ORDERED: LACTATED RINGER'S 1,000 ML IV SCH (07:00)
[2018-08-26] MEDS ORDERED: CEFAZOLIN 2 GM/50 ML (PMX) 50 ML IVPB ONE (07:00)
[2018-08-26] MEDS ORDERED: MIDAZOLAM 1 MG/ML 2 ML INJ ONE (07:01)
[2018-08-26] MEDS ORDERED: FENTAnyl 50 MCG/ML VIAL ONE ×4 (07:02→09:54)
--- NOTE | 2018-08-26 07:30 | PREAC ---
Date/Time of Note Date/Time of Note DATE: 08/26/18 TIME: 07:27 Anesthesia Eval and Record Evaluation Time Pre-Procedure Interview DATE: 08/26/18 TIME: 07:27 Age 37 Sex female NPO: 8 hrs Preoperative diagnosis vaginal bleeding and fibroids Planned procedure RICHARD Past Medical History Past Medical History: Includes Cardio: HTN, Dyslipidemia, Other (History of chest pain, well worked up by vegetable packer) Surgery & Anesthesia Issues No known issue Meds Anticoagulation: No Beta Neal within 24 hr: Yes Reported Medications Metoprolol Tartrate* (Lopressor*) 25 Mg Tablet, 50 MG PO TID, #60 TAB 07/16/18 Losartan Potassium* (Losartan Potassium*) 50 Mg Tablet, 50 MG PO DAILY, TAB 07/16/18 Isosorbide Mononitrate* (Isosorbide Mononitrate*) 30 Mg Tab.er.24h, 30 MG PO DAILY, TAB 07/16/18 Aspirin* (Aspirin* Chew) 81 Mg Tab.chew, 81 MG PO DAILY, TAB.CHEW 07/16/18 Losartan Potassium* (Losartan Potassium*) 50 Mg Tablet, 50 MG PO DAILY, TAB 09/22/16 Current Medications Cefazolin Sodium/ Dextrose 50 ml @ 100 mls/hr PRE-OP ONCE IVPB ; Start 08/26/18 at 07:00; Stop 08/26/18 at 07:29 Lactated Ringer's 1,000 ml @ 125 mls/hr Q8H IV ; Start 08/26/18 at 07:00 Meds reviewed: Yes Allergies Coded Allergies: NSAIDS (Non-Steroidal Anti-Inflamma (Verified Allergy, Unknown, 08/26/18) REENTRY OF NSAID IN NON ALLERGY FIELD Allergies Reviewed: Yes Labs/Studies Labs Reviewed: Reviewed by anesthesiologist (anemia) Blood Bank Test 08/26/18 07:00 Blood Product Summary Counts test: Negative Studies: ECG (SR), Stress test (WNL), 2D Echo Pre-procedure Exam Last vitals Vital Signs Date Temp Pulse Resp B/P (MAP) Pulse Ox O2 O2 Flow FiO2 Time Delivery Rate 08/26/18 98.3 63 18 92/61 (71) 97 Room Air 07:08 Airway: Adequate mouth opening Mallampati: Mallampati II Teeth: Normal Lung: Normal Heart: Normal ASA Physical Status ASA physical status: 3 Emergency: None Planned Anesthetic General/MAC: ETT, A Line Pre-operative Attestations Prior to commencing anesthesia and surgery, the patient was re-evaluated, there was verification of: *The patient's identity *The results of appropriate recent lab work and preoperative vital signs *The above evaluation not changing prior to induction *Anesthetic plan, risk benefits, alternative and complications discussed with patient/family; questions answered; patient/family understands, accepts and wishes to proceed. WOODY HAND DIRECTOR OF STUDENT FINANCIAL AID August 26, 2018 07:30
--- NOTE | 2018-08-26 07:31 | HPN ---
Date/Time of Note Date/Time of Note DATE: 08/26/18 TIME: 07:31 Interval H&P Admission Note Pt. seen H&P reviewed: No system changes ASTRID MCKEON MD August 26, 2018 07:31
[2018-08-26] MEDS ORDERED: morphine SULFATE/PF (10 MG/10 ML) INJ ONE (07:35)
[2018-08-26] MEDS ORDERED: LIDOCAINE 2% (SDV) 5 ML INJ ONE (08:45)
[2018-08-26] MEDS ORDERED: PROPOFOL 20 ML ONE (08:45)
[2018-08-26] MEDS ORDERED: EPHEDrine 25 MG/5 ML SYG ONE (08:45)
[2018-08-26] MEDS ORDERED: NEOSTIGMINE 3 MG/3 ML SYRINGE ONE (08:46)
[2018-08-26] MEDS ORDERED: DEXAMETHASONE 4 MG/ML 5 ML INJ ONE (08:46)
[2018-08-26] MEDS ORDERED: GLYCOPYRROLATE 0.4 MG INJ ONE (08:46)
[2018-08-26] MEDS ORDERED: ONDANSETRON 4 MG INJ ONE ×2 (08:46→10:04)
[2018-08-26] MEDS ORDERED: MEPERIDINE 25 MG INJ ONE ×2 (10:04→10:15)
--- NOTE | 2018-08-26 10:23 | SIPON ---
Date/Time of Note Date/Time of Note DATE: 08/26/18 TIME: 10:22 Operative Report Preoperative Diagnosis Large enlarging fibroid uterus Intractable pelvic pain and bleeding Heart valve disease Large thyroid Postoperative Diagnosis Same Operation/Procedure Performed RICHARD BS Surgeon see signature line practice assistant asbestos abatement technician Anesthesia: general Estimated blood loss: 50 - 100 ml's Transfusion Required none Specimen Uterus cervix and tubes Grafts/Implants none Complications none ASTRID MCKEON MD August 26, 2018 10:23
[2018-08-26] MEDS ORDERED: HYDROCODONE/APAP (5/325) TAB PO PRN (10:30)
[2018-08-26] MEDS ORDERED: MEPERIDINE 25 MG INJ IV PRN (10:30)
[2018-08-26] MEDS ORDERED: DIPHENHYDRAMINE 50 MG CAP PO PRN (10:30)
[2018-08-26] MEDS ORDERED: FENTAnyl 50 MCG/ML VIAL IV PRN ×2 (10:30)
[2018-08-26] MEDS ORDERED: ZOLPIDEM 5 MG TAB PO PRN (10:30)
[2018-08-26] MEDS ORDERED: MEPERIDINE 25 MG INJ IV ONE ×2 (10:30)
[2018-08-26] MEDS ORDERED: ONDANSETRON 4 MG INJ IV PRN (10:30)
[2018-08-26] MEDS ORDERED: LABETALOL HCL 20MG INJ IV PRN (10:30)
[2018-08-26] MEDS ORDERED: MIDAZOLAM 1 MG/ML 2 ML INJ IV PRN (10:30)
[2018-08-26] MEDS ORDERED: OXYCODONE/ACETAMINOPHEN (5/325) TAB PO PRN ×2 (10:30)
[2018-08-26] MEDS ORDERED: MEPERIDINE 50 MG INJ IV ONE (10:30)
[2018-08-26] MEDS: HYDROmorphONE 1 MG/5 ML IV SYRINGE IV PRN ×3 (10:37→11:09)
--- NOTE | 2018-08-26 10:41 | PAC ---
Date/Time of Note Date/Time of Note DATE: 08/26/18 TIME: 10:41 Post-Anesthesia Notes Post-Anesthesia Note Last documented vital signs Vital Signs Date Temp Pulse Resp B/P (MAP) Pulse Ox O2 O2 Flow FiO2 Time Delivery Rate 08/26/18 98.5 10:09 08/26/18 63 18 92/61 (71) 97 Room Air 07:08 Activity: WNL Respiratory function: WNL Cardiovascular function: WNL Mental status: Baseline Pain reasonably controlled: Yes Hydration appropriate: Yes Nausea/Vomiting absent: Yes WOODY HAND CRNA August 26, 2018 10:41
[2018-08-26] MEDS: HYDROmorphONE 1 MG/ML SYG IV PRN ×3 (12:39→18:42)
[2018-08-26] MEDS: METOPROLOL 25 MG TAB PO SCH ×3 (13:00→21:00)
--- NOTE | 2018-08-26 13:00 | OPR ---
DATE OF OPERATION: 08/26/2018 PROCEDURE: Total abdominal hysterectomy, bilateral salpingectomy. PREOPERATIVE DIAGNOSES: 1. Enlarging fibroid uterus. 2. Intractable pelvic pain and bleeding. 3. Heart AND bowel disease and irregular heartbeat. 4. Large thyroid. POSTOPERATIVE DIAGNOSES: 1. Enlarging fibroid uterus. 2. Intractable pelvic pain and bleeding. 3. Heart AND bowel disease and irregular heartbeat. 4. Large thyroid. SURGEON: Astrid Edmonds MD ADDICTION THERAPIST: parking technician. ANESTHESIA: Yuri . ANESTHESIOLOGIST:. COMPLICATIONS: None. PROCEDURE: The patient was given Duramorph anesthesia and then a general anesthesia by Yuri an d the patient was placed in the supine position. A Marcano catheter had been placed in the bladder. T he abdomen was prepped and draped and a transverse incision going 2 cm up the pubic bone was made and the incision was about 15 cm in length. The abdomen was opened in layers without difficulties. Abd ominal cavity was reached. The exploration of the abdominal cavity revealed there was a large fibroi d of about 13 cm on top of the uterus in the fundal area. The rest of the uterus appears with no fib roid. There is a fibroid sitting in the cul-de-sac by the sacrum. The self-retaining retractors wer e placed and laps to keep the bowel up and the self-retaining retractor of the LCS was used to retrac t the bladder as well. The uterus was lifted with the Kris clamp and the round ligaments were burne d with the LigaSure in both sides. The anterior broad ligament was incised and the bladder flap was made. The ovarian ligament and the tubes were burned and cut with the LigaSure instrument. Then the uterine vessels were clamped, burned and cut with the LigaSure instrument. The bladder was pushed f arther down. The cardinal ligaments and uterosacral ligaments were clamped, cut and tied with #1 Pascual ryl and the dissection was done farther down and the vaginal cuff was entered with Metzenbaum. The J ergensen scissor was used at this time to remove the uterus and cervix. The corners of the vagina we re held with David's and anterior and posterior vagina as well and the corner suture was passed thro ugh the corner of the vagina involving the cardinal ligament and these sutures were tied and held. T he vagina was closed with interrupted sutures with 0 Vicryl and the cavity was visualized under water and there was no active bleeding. At this time, the tubes were removed with the LigaSure instrument by clamping the mesosalpinx and removing both tubes separately. Hemostasis again was visualized und er water with good hemostasis. The ureters were tracked down with good peristalsis and away from all the surgery. Both ovaries were normal, they were covered with Interceed to prevent adhesions and th e cavity was closed after it had been washed several times and the liquid was removed. The peritoneu m was closed with 2-0 Vicryl sutures. The fascia was closed with 0 PDS looped suture, 2-0 Vicryl for the subcutaneous tissue, 3-0 Monocryl subcuticular to the skin. Dermabond and Steri-Strips were linda lied. The patient tolerated the procedure well and left the OR awake and stable. Sponge counts, ins trument counts, needle counts were correct. Intravenous antibiotics were given for prophylaxis. Blo od loss was approximately 50 mL and the urine was clear at the end of the procedure. Dictated By: ASTRID TINAJERO/KEITH Conf#: [id number] DID#: [id number]
[2018-08-26] MEDS: LACTATED RINGER'S 1,000 ML IV SCH ×2 (13:17→18:46)
[2018-08-26] MEDS: ONDANSETRON INJ 6 MG in DEXTROSE 5% 50 ML IVPB PRN ×2 (13:46→19:44)
[2018-08-26] MEDS: METOCLOPRAMIDE 10 MG TAB PO SCH ×2 (13:57→18:00)
[2018-08-26] MEDS: CEFAZOLIN 1 GM/50 ML (PMX) 50 ML IVPB SCH ×2 (15:50→23:49)
[2018-08-26] MEDS: HYDROCODONE/APAP (5/325) TAB PO PRN (22:19)
[2018-08-27] MEDS: METOCLOPRAMIDE 10 MG TAB PO SCH ×5 (01:32→23:28)
[2018-08-27] MEDS: LACTATED RINGER'S 1,000 ML IV SCH ×3 (02:12→10:12)
[2018-08-27 02:52] VITALS: BP 89/54; PULSE 80; RESP 16
[2018-08-27 04:23] VITALS: BP 101/57; PULSE 73
[2018-08-27] MEDS: HYDROmorphONE 1 MG/ML SYG IV PRN ×5 (04:27→19:02)
[2018-08-27] MEDS: CEFAZOLIN 1 GM/50 ML (PMX) 50 ML IVPB SCH ×3 (05:56→22:14)
--- NOTE | 2018-08-27 07:45 | OPPN ---
Date/Time of Note Date/Time of Note DATE: 08/27/18 TIME: 07:42 Anesthesia Follow up Anesthesia Follow up Last documented vital signs Vital Signs Date Temp Pulse Resp B/P (MAP) Pulse Ox O2 O2 Flow FiO2 Time Delivery Rate 08/27/18 73 101/57 04:23 (72) 08/27/18 98.4 16 97 02:52 08/26/18 Room Air 19:34 08/26/18 2.0 12:45 Respiratory function: WNL Cardiovascular function: WNL Comments A 37 year female s/p RICHARD. GA, spinal with duramorph form post op pain POD#1 is fine. No apin, headache, N/V, itching. no neural deficit. care per surgery Copies To: CC: ; FLAQUITO PATEL MD August 27, 2018 07:45
[2018-08-27 07:58] VITALS: BP 99/58; PULSE 102; RESP 20
[2018-08-27] MEDS: METOPROLOL 25 MG TAB PO SCH ×3 (08:47→21:00)
[2018-08-27] MEDS: LOSARTAN 50 MG TAB PO SCH ×2 (08:47→17:03)
[2018-08-27] MEDS: ISOSORBIDE MONONITRATE(SR)30 MG TAB PO SCH ×2 (08:48→17:03)
[2018-08-27] MEDS ORDERED: LOSARTAN 50 MG TAB PO SCH (09:00)
--- NOTE | 2018-08-27 11:54 | PN ---
Date/Time of Note Date/Time of Note DATE: 08/27/18 TIME: 11:53 Assessment/Plan Lines/Catheters IV Catheter Type (from Nrsg): Peripheral IV Marcano in Place (from Nrsg): Yes Subjective 24 Hr Interval Summary Day 1 post hysterectomy Afebrile, feels good. Not up yet. Patient instructed ambulation. She was explained about her surgical findings and she was appreciative of the surgery Constitutional: no complaints, improved, ambulates Feeding: advancing diet Pain Control: mild Detailed Summary Eyes: no complaints ENT: no complaints Respiratory: no complaints Cardiovascular: no complaints Gastrointestinal: no complaints Genitourinary: no complaints Musculoskeletal: no complaints Skin: no complaints Neurologic: no complaints Endocrine: no complaints Lymphatic: no complaints Psychological: no complaints, nl mood/affect Immunologic: no complaints Exam/Review of Systems Vital Signs Vitals Vital Signs Date Temp Pulse Resp B/P (MAP) Pulse Ox O2 O2 Flow FiO2 Time Delivery Rate 08/27/18 98.5 102 20 99/58 (72) 95 07:58 08/26/18 Room Air 19:34 08/26/18 2.0 12:45 Intake and Output 08/26/18 08/26/18 08/27/18 1414:59 22:59 06:59 IntakeIntake Total 3513 ml 103 ml 1465 ml OutputOutput Total 750 ml 4600 ml BalanceBalance 2763 ml 103 ml -3135 ml Exam Constitutional: alert, oriented, well developed Psych: no complaints, nl mood/affect Head: normocephalic, atraumatic Eyes: nl conjunctiva, EOMI, nl lids, nl sclera ENMT: nl external ears & nose, nl lips & teeth, nl nasal mucosa & septum, mucosa pink and moist Neck: supple, non-tender Respiratory: clear to auscultation, normal air movement Cardiovascular: regular rate and rhythm, nl pulses Gastrointestinal: soft, nl liver, spleen, non-tender Musculoskeletal: nl extremities to inspection, nl gait and stance Extremities: normal pulses Neurological: PIPE CLEANING MACHINE OPERATOR II-XII intact, nl mental status, nl speech, nl strength Skin: nl turgor, rash or lesions Lymph: nl lymph nodes Results Result Diagram: 08/27/18 0502 08/27/18 0502 ASTRID MCKEON MD August 27, 2018 11:54
[2018-08-27 14:26] VITALS: BP 109/69; PULSE 67; RESP 20
[2018-08-27] MEDS: HYDROCODONE/APAP (5/325) TAB PO PRN ×2 (16:19→22:13)
[2018-08-27 19:47] VITALS: BP 112/69; PULSE 61; RESP 18
[2018-08-28 02:11] VITALS: BP 104/58; PULSE 72; RESP 18
[2018-08-28] MEDS: HYDROmorphONE 1 MG/ML SYG IV PRN (02:22)
[2018-08-28] MEDS: HYDROCODONE/APAP (5/325) TAB PO PRN ×4 (04:02→22:35)
[2018-08-28] MEDS: CEFAZOLIN 1 GM/50 ML (PMX) 50 ML IVPB SCH (06:12)
[2018-08-28] MEDS: METOCLOPRAMIDE 10 MG TAB PO SCH ×3 (06:12→18:38)
[2018-08-28 08:08] VITALS: BP 100/58; PULSE 70; RESP 16
[2018-08-28] MEDS: METOPROLOL 25 MG TAB PO SCH ×3 (09:36→21:36)
[2018-08-28] MEDS: LOSARTAN 50 MG TAB PO SCH (09:37)
--- NOTE | 2018-08-28 10:56 | PN ---
Date/Time of Note Date/Time of Note DATE: 08/28/18 TIME: 10:56 Assessment/Plan Lines/Catheters IV Catheter Type (from Nrsg): Saline Lock Marcano in Place (from Nrsg): Yes Subjective 24 Hr Interval Summary Constitutional: no complaints Feeding: advancing diet Pain Control: moderate Detailed Summary Eyes: no complaints ENT: no complaints Respiratory: no complaints Cardiovascular: no complaints Gastrointestinal: no complaints Genitourinary: no complaints Musculoskeletal: no complaints Skin: no complaints Neurologic: no complaints Endocrine: no complaints Lymphatic: no complaints Psychological: no complaints, nl mood/affect Immunologic: no complaints Exam/Review of Systems Vital Signs Vitals Vital Signs Date Temp Pulse Resp B/P (MAP) Pulse Ox O2 O2 Flow FiO2 Time Delivery Rate 08/28/18 99.0 70 16 100/58 97 08:08 (72) 08/26/18 Room Air 19:34 08/26/18 2.0 12:45 Intake and Output 08/27/18 08/27/18 08/28/18 1515:00 23:00 07:00 IntakeIntake Total 1760 ml 410 ml 50 ml OutputOutput Total 900 ml BalanceBalance 860 ml 410 ml 50 ml Exam Constitutional: alert, oriented, well developed Psych: no complaints, nl mood/affect Head: normocephalic, atraumatic Eyes: nl conjunctiva, EOMI, nl lids, nl sclera ENMT: nl external ears & nose, nl lips & teeth, nl nasal mucosa & septum, muc mark pink and moist Neck: supple, non-tender Respiratory: clear to auscultation, normal air movement Cardiovascular: regular rate and rhythm, nl pulses Gastrointestinal: soft, nl liver, spleen, non-tender Musculoskeletal: nl extremities to inspection, nl gait and stance Extremities: normal pulses Neurological: BANQUET KITCHEN SUPERVISOR II-XII intact, nl mental status, nl speech, nl strength Skin: nl turgor, rash or lesions Lymph: nl lymph nodes Results Result Diagram: 08/27/18 0502 08/27/18 0502 ASTRID MCKEON MD August 28, 2018 10:56
[2018-08-28] MEDS ORDERED: BISACODYL (EC) 5 MG TAB PO ONE (11:00)
[2018-08-28] MEDS: ISOSORBIDE MONONITRATE(SR)30 MG TAB PO SCH (12:26)
[2018-08-28 15:00] VITALS: BP 97/56; PULSE 76; RESP 17
[2018-08-28 19:51] VITALS: BP 112/77; PULSE 73; RESP 18
[2018-08-29] MEDS: METOCLOPRAMIDE 10 MG TAB PO SCH ×2 (01:16→06:38)
[2018-08-29 01:20] VITALS: BP 110/67; PULSE 66; RESP 18
[2018-08-29] MEDS: HYDROCODONE/APAP (5/325) TAB PO PRN (05:04)
[2018-08-29 07:32] VITALS: BP 123/77; PULSE 75; RESP 18
[2018-08-29] MEDS: ISOSORBIDE MONONITRATE(SR)30 MG TAB PO SCH (09:03)
[2018-08-29] MEDS: METOPROLOL 25 MG TAB PO SCH (09:03)
[2018-08-29] MEDS: LOSARTAN 50 MG TAB PO SCH (09:03)
--- NOTE | 2018-08-29 10:08 | QN ---
Documentation Comment POD#3 is stable afebrile tolerates diet No VB +BM +voids VS stable Gen NAD Abd soft NT ND Incision intact Genitalia No blood at perineum --->Discharge home -->Follow up with -->precautions discussed ADELINA GUARDADO M.D. August 29, 2018 10:08
--- NOTE | 2018-08-29 10:10 | DS ---
Date/Time of Note Date/Time of Note DATE: 08/29/18 TIME: 10:09 Discharge Summary Admission/Discharge Info Admit Date/Time August 26, 2018 at 06:01 Discharge Date/Time 08/29/2018 Discharge Diagnosis Fibroid uterus Patient Condition: Good Hospital Course Uneventful Home Meds Reported Medications Metoprolol Tartrate* (Lopressor*) 25 Mg Tablet, 50 MG PO TID, #60 TAB 07/16/18 Losartan Potassium* (Losartan Potassium*) 50 Mg Tablet, 50 MG PO DAILY, TAB 07/16/18 Isosorbide Mononitrate* (Isosorbide Mononitrate*) 30 Mg Tab.er.24h, 30 MG PO DAILY, TAB 07/16/18 Aspirin* (Aspirin* Chew) 81 Mg Tab.chew, 81 MG PO DAILY, TAB.CHEW 07/16/18 Losartan Potassium* (Losartan Potassium*) 50 Mg Tablet, 50 MG PO DAILY, TAB 09/22/16 Primary Care Provider Brant Jade MD Pending Labs Laboratory Tests Test 08/29/18 05:12 Lab Scanned Report REFERENCE LAB [id number] ADELINA GUARDADO M.D. August 29, 2018 10:10
--- NOTE | 2018-08-29 12:45 | RADRPT ---
Vent Rate: 66 bpm RR Interval: 0 msec OK Interval: 106 msec QRS Duration: 86 msec QT Interval: 402 msec QTC Interval: 421 msec P-R-T [place]: -5 - 32 - 24 degrees Sinus rhythm with short OK Otherwise normal ECG Electronically Signed By: Dieter Dunn
== END 2018-08-29 11:30 | disposition home or self-care (01) | DRG 743 ==
LOC: REC 06:01 → 2NE 12:15
PROVIDERS: ADMIT Obstetrics & Gynecology; ATTEND Obstetrics & Gynecology
PROC: 0UT70ZZ Resection of Bilateral Fallopian Tubes, Open Approach (ICD-10-PCS; 2018-08-26)
PROC: 0UT90ZZ Resection of Uterus, Open Approach (ICD-10-PCS; principal; 2018-08-26 07:30)
DX: D25.9 Leiomyoma of uterus, unspecified (principal); N93.9 Abnormal uterine and vaginal bleeding, unspecified; I10 Essential (primary) hypertension; N60.12 Diffuse cystic mastopathy of left breast; E78.5 Hyperlipidemia, unspecified; E04.9 Nontoxic goiter, unspecified; I08.1 Rheumatic disorders of both mitral and tricuspid valves
CPT/HCPCS: 71045; 80051; 82565; 84520; 85025; 86850; 86900; 86901; 86920; 87086; 88305; 93005; J0690; J1100; J1170; J2175; J2250; J2274; J2405; J2710; J3010; J7120

== ENCOUNTER 2018-10-21 23:53 | Emergency (ER) | payer BC ==
[~2018-10-21] VITALS: Ht 160 cm; Wt 69.4 kg
[2018-10-22 00:01] VITALS: Ht 160 cm; Wt 69.4 kg
--- NOTE | 2018-10-22 01:09 | ERD ---
ER Documentation Chief Complaint Chief Complaint R FLANK PAIN X'S 2 DAYS HPI The patient is a 37-year-old female, presenting to the ER because of acute right flank pain for 1 week, similar symptom previously from kidney stones, denies fever, chills, neck pain, chest pain, dyspnea, vomiting, complains of diarrhea for the last 5 days, denies hematemesis/hematochezia. She does not smoke nor drink, LMP was 7 weeks ago She had abdominal pelvic CT on August 2017 that was unremarkable except for fibroid Past medical history: Hypertension, mitral valve prolapse, history of right kidney stone, anemia, cholelithiasis confirmed by ultrasound on August 20, 2017. Surgical history: Rhinoplasty, hysterectomy, hemorrhoidectomy, D&C ROS All systems reviewed and are negative except as per history of present illness. Medications Home Meds Active Scripts Polyethylene Glycol* (Miralax*) 17 Gm Powd.pack, 17 GM PO DAILY, #7 Prov:EZEKIEL ANTONIO MD 10/22/18 Allergies Allergies: Coded Allergies: NSAIDS (Non-Steroidal Anti-Inflamma (Verified Allergy, Unknown, 08/26/18) REENTRY OF NSAID IN NON ALLERGY FIELD piperacillin (Verified Allergy, Unknown, 08/26/18) tazobactam (Verified Allergy, Unknown, 08/26/18) PMhx/Soc History of Surgery: Yes (HYSTEROSCOPY,RT EYE UPPER LID SX,D AND C,RHINOPLASTY) Anesthesia Reaction: No Hx Neurological Disorder: No Hx Respiratory Disorders: No Hx Cardiac Disorders: Yes (HTN,MVP,TRISCUSPID PROLAPSE,LDH,) Hx Psychiatric Problems: No Hx Miscellaneous Medical Probl: No Hx Alcohol Use: No Hx Substance Use: No Hx Tobacco Use: No Physical Exam Vitals Vital Signs Date Temp Pulse Resp B/P (MAP) Pulse Ox O2 O2 Flow FiO2 Time Delivery Rate 10/22/18 58 20 98/66 (77) 98 Room Air 00:52 10/22/18 97.6 62 18 108/65 99 00:01 (79) Physical Exam Const: No acute distress. Head: Atraumatic. Eyes: Normal Conjunctiva. ENT: Normal External Ears, Nose and Mouth. Neck: Full range of motion. No meningismus. Resp: Clear to auscultation bilaterally. Cardio: Regular rate and rhythm. Abd: Soft, non distended, normal bowel sounds, ophthalmologic Assessment: Patient's ocular symptoms have stabilized while they have been evaluated in the department and are appropriate for outpatient work up. No evidence of ruptured globe, retinal detachment, acute angle closure glaucoma, or deep space infection. Plan for 24 hour ophthalmologic follow up. mild right flank tenderness, no right lower quadrant/rigidity/rebound or CVA tenderness Skin: No petechiae or rashes. Back: No midline or flank tenderness. Ext: No cyanosis, or edema. Neur: Awake and alert. No focal deficit Psych: Normal Mood and Affect. Result Diagram: 10/22/1810310/22/18 0104 Results 24 hrs Laboratory Tests Test 10/22/18 01:04 10/22/18 01:17 10/22/18 01:19 White Blood Count 9.7 10^3/ul Red Blood Count 5.19 10^6/ul Hemoglobin 13.8 g/dl Hematocrit 42.2 % Mean Corpuscular Volume 81.3 fl Mean Corpuscular Hemoglobin 26.6 pg Mean Corpuscular 32.7 g/dl Hemoglobin Concent Red Cell Distribution Width 14.9 % Platelet Count 331 10^3/UL Mean Platelet Volume 12.8 fl Immature Granulocytes % 0.200 % Neutrophils % 57.2 % Lymphocytes % 34.9 % Monocytes % 6.1 % Eosinophils % 1.1 % Basophils % 0.5 % Nucleated Red Blood Cells % 0.0 /100WBC Immature Granulocytes # 0.020 10^3/ul Neutrophils # 5.6 10^3/ul Lymphocytes # 3.4 10^3/ul Monocytes # 0.6 10^3/ul Eosinophils # 0.1 10^3/ul Basophils # 0.1 10^3/ul Nucleated Red Blood Cells # 0.0 10^3/ul Sodium Level 140 mmol/L Potassium Level 4.4 mmol/L Chloride Level 104 mmol/L Carbon Dioxide Level 28 mmol/L Anion Gap 8 Blood Urea Nitrogen 12 mg/dl Creatinine 0.64 mg/dl Est Glomerular Filtrat Rate mL/min > 60 mL/min Glucose Level 108 mg/dl Calcium Level 9.7 mg/dl Total Bilirubin 0.8 mg/dl Direct Bilirubin 0.00 mg/dl Indirect Bilirubin 0.8 mg/dl Aspartate Amino Transf (AST/SGOT) 17 IU/L Alanine 18 IU/L Aminotransferase (ALT/SGPT) Alkaline Phosphatase 57 IU/L Total Protein 8.3 g/dl Albumin 4.6 g/dl Globulin 3.70 g/dl Albumin/Globulin Ratio 1.24 Lipase 100 U/L Bedside Urine pH (LAB) 5.5 Bedside Urine Protein (LAB) Trace Bedside Urine Glucose (UA) Negative Bedside Urine Ketones (LAB) Negative Bedside Urine Blood Negative Bedside Urine Nitrite (LAB) Negative Bedside Urine Leukocyte Esterase Trace (L POC Beta HCG, Qualitative NEGATIVE Current Medications Medications Dose Sig/Martha Start Time Status Last (Trade) Ordered Route PRN Stop Time Admin Dose Reason Admin Sodium 1,000 ml @ Q1H STAT 10/22/18 DC 10/22/18 Chloride 1,000 mls/hr IV : 01:42 10/22/18 02:22 Morphine 2 mg ONCE STAT 10/22/18 DC 10/22/18 Sulfate IV : 01:43 (morphine) 10/22/18 01:27 Ondansetron 4 mg ONCE STAT 10/22/18 DC 10/22/18 HCl (Zofran IV : 01:42 Inj) 10/22/18 01:27 Procedures/MDM MEDICAL MAKING DECISION: The patient is a 37-year-old female, presenting with acute right flank pain, most likely due to kidney stone and gallstones. She was treated with Toradol 30 mg IV, morphine 2 mg IV for pain, Zofran IV for nausea, 1 L saline for clinical dehydration with good response, is stable for outpatient follow-up The pain is controlled, I do not believe that she needs another abdominal pelvic CT and she agrees The differential diagnoses considered include but are not limited to cholelithiasis, cholecystitis, choledocholithiasis, cholangitis, pancreatitis, hepatitis, gastritis, peptic ulcer disease, gastric ulcer, appendicitis, cystitis, diverticulitis, partial small bowel obstruction. Departure Diagnosis: Primary Impression: Flank pain Additional Impressions: Cholelithiases Diarrhea Condition: Good Comments She was discharged with [place] and [facility]ira[facility] I discussed the findings with the patient. I advised the patient to follow-up with the primary physician in about 1-2 days, sooner if needed and return if any concern. Disclaimer: Inadvertent spelling and grammatical errors are likely due to EHR/dictation software use and do not reflect on the overall quality of patient care. Also, please note that the electronic time recorded on this note does not necessarily reflect the actual time of the patient encounter. EZEKIEL ANTONIO MD Oct 22, 2018 01:09
[2018-10-22] MEDS ORDERED: SOD CHLORIDE 0.9% 1,000 ML IV STA (01:23)
[2018-10-22] MEDS ORDERED: morphine 2 MG INJ IV STA (01:23)
[2018-10-22] MEDS ORDERED: ONDANSETRON 4 MG INJ IV STA (01:23)
[2018-10-22] MEDS ORDERED: POLY17PO6 PO (01:36)
[2018-10-22] MEDS ORDERED: KETOROLAC 30 MG INJ IV STA (03:14)
[2018-10-22] MEDS ORDERED: LOSA50TA14 PO (03:18)
[2018-10-22] MEDS ORDERED: METO-429 PO (03:18)
[2018-10-22] MEDS ORDERED: ISOS30TA67 PO (03:18)
[2018-10-22] MEDS ORDERED: LOPE2CAP PO (03:21)
[2018-10-22] MEDS ORDERED: HYDR-4011 PO (03:21)
[2018-10-22 03:34] VITALS: BP 93/59; PULSE 63; RESP 18
== END 2018-10-22 03:34 | disposition home or self-care (01) ==
LOC: E/R 23:53
DX: K80.20 Calculus of gallbladder without cholecystitis without obstruction (principal); I10 Essential (primary) hypertension
CPT/HCPCS: 36415; 80053; 81003; 81025; 83690; 85025; 96374; 96375; 99284; J1885; J2270; J2405; J7030